=== PATIENT | female | born 1960 | race Caucasian/White ===

== ENCOUNTER 2017-12-15 13:39 | Emergency (ER) | payer BC ==
[2017-12-15] MEDS ORDERED: ASPIRIN 81 MG CHEWABLE CTB ONE (13:41)
[2017-12-15] MEDS ORDERED: NITROGLYCERIN 0.4 MG TAB SL ONE (13:41)
[2017-12-15 13:46] VITALS: TEMP 98.2
[2017-12-15] MEDS ORDERED: ASPIRIN 81 MG CHEWABLE CTB PO STA (13:52)
[2017-12-15] MEDS ORDERED: SODIUM CHLORIDE 0.9% FLUSH 10 ML SOL IV PRN (13:52)
[2017-12-15] MEDS ORDERED: NITROGLYCERIN 0.4 MG TAB SL PRN (13:52)
[2017-12-15 13:58] LABS: BASOPHILS % (AUTO) 1 % (0-3); EOSINOPHILS % (AUTO) 2 % (0-9); HEMATOCRIT 41 % (35-47); LYMPHOCYTES % (AUTO) 33.8 % (10-50); MEAN CORPUSCULAR HEMOGLOBIN 31.9 pg (27.0-32.0); MEAN CORPUSCULAR HGB CONC 34.3 gm/dl (32.0-36.0); MEAN CORPUSCULAR VOLUME 93 fL (81-99); MONOCYTES % (AUTO) 8.1 % (0-12); NEUTROPHILS % (AUTO) 55.3 % (37-80)
[2017-12-15 14:11] LABS: INR 0.96 (0.86-1.12)
[2017-12-15 14:12] LABS: BLOOD UREA NITROGEN 17 mg/dl (7-18); CARBON DIOXIDE 30.7 mEq/L (21-32); CHLORIDE 104 mMol/L (98-107); CREATINE KINASE 121 U/L (26-192); CREATININE 0.79 mg/dl (0.60-1.00); GLOM FILT RATE 74 mL/min (>60); GLUCOSE 116 mg/dl (74-106); SODIUM 140 mMol/L (136-145); TROP I < 0.017 ng/ml (0.000-0.056)
[2017-12-15 16:57] VITALS: O2SAT 99
[2017-12-15 16:58] VITALS: BP 127/81; PULSE 65; RESP 18
== END 2017-12-15 16:45 | disposition home or self-care (01) ==
LOC: ED 13:39
DX: R07.89 Other chest pain (principal); Z87.891 Personal history of nicotine dependence
CPT/HCPCS: 36415; 71045; 71270; 74170; 80048; 82550; 84484; 85025; 85610; 85730; 93005; 99285; Q9967; A9270-GY